=== PATIENT | male | born 1950 | race Caucasian/White ===

== ENCOUNTER → 2017-05-09 | Outpatient (CLI) | payer BC ==
[~2017-05-09] MED LIST: ADVIN25050 INH; ALBU1AER9 INH; ASCO10003 PO; ASPEC81 PO; CHOL400C7 PO; MOME50SP5; MULT-267 PO; OMEG10007 PO; SYN125 PO
--- NOTE | 2017-05-09 09:23 | DIAGNOSTIC IMAGING REPORT ---
CHEST 2 VIEWS ROUTINE CLINICAL HISTORY: J45.909 [id number] Sleep [id number] Black lung [id number] COMPARISON STUDY: 03/26/2013 FINDINGS: The cardiac and mediastinal contours remain stable. There is persistent elevation/eventration of the right hemidiaphragm. There is stable blunting of the right lateral costophrenic angle. There is stable areas of linear scarring/atelectasis the right lung base. Linear opacities the left lung base are also felt to represent subsegmental atelectatic change. The upper lung zones are clear. There is no failure.[ IMPRESSION: Chronic changes similar to the preceding study. No acute findings. Electronically signed by: Wu Lehman M.D. 05/09/2017 9:21 AM Dictated Date/Time: 05/09/2017 9:20 AM
== END | disposition home or self-care (01) ==
LOC: C.RAD1850 09:10
PROVIDERS: ATTEND Physician Assistant Medical
DX: J45.909 Unspecified asthma, uncomplicated (principal); J60 Coalworker's pneumoconiosis; G47.30 Sleep apnea, unspecified

== ENCOUNTER 2017-05-18 15:46 | Emergency (ER) | payer BC ==
[~2017-05-18] VITALS: Ht 188 cm; Wt 126.0 kg
[2017-05-18 16:19] VITALS: Ht 188 cm; Wt 126.0 kg
[2017-05-18] MEDS ORDERED: ALBUT/IPRATROP 3MG/0.5MG NEB 3 ML VIAL INH STA (16:51)
[2017-05-18] MEDS ORDERED: METHYLPREDNISOLONE 125 MG VIAL IV STA (16:51)
[2017-05-18] MEDS ORDERED: LEVO125T5 PO (17:19)
[2017-05-18] MEDS ORDERED: ALBU18002 INH (17:19)
[2017-05-18] MEDS ORDERED: FLUT115A INH (17:19)
[2017-05-18] MEDS ORDERED: MOME6000 NAE (17:19)
[2017-05-18] MEDS ORDERED: MULT1TAB30 PO (17:19)
[2017-05-18 17:53] LABS: BASO % 0.6 %; BASO ABS # 0.03 K/uL (0-0.2); EOS % 2.9 %; EOS ABS # 0.14 K/uL (0-0.5); HEMOGLOBIN 16.1 g/dL (14.0-18.0); IG# 0.03 K/uL (0.00-0.02); LYMPH % 14.3 %; LYMPH ABS # 0.68 K/uL (1.2-3.4); MEAN CORPUSCULAR HEMOGLOBIN 30.1 pg (25-34); MEAN CORPUSCULAR HGB CONC 34.3 g/dl (32-36); MEAN PLATELET VOLUME 11.3 fL (7.4-10.4); MONO % 11.8 %; MONO ABS # 0.56 K/uL (0.11-0.59); NEUT % 69.8 %; NEUT ABS # 3.32 K/uL (1.4-6.5); PLATELET COUNT 167 K/uL (130-400); RED CELL DISTRIBUTION WIDTH CV 13.6 % (11.5-14.5); RED CELL DISTRIBUTION WIDTH SD 43.5 fL (36.4-46.3); WHITE BLOOD COUNT 4.76 K/uL (4.8-10.8)
[2017-05-18 18:04] LABS: INFLUENZA B ANTIGEN Neg for Influ B (NEG)
[2017-05-18 18:13] LABS: ALBUMIN 3.6 gm/dl (3.4-5.0); ALT/SGPT 100 U/L (12-78); AST/SGOT 71 U/L (15-37); BLOOD UREA NITROGEN 19 mg/dl (7-18); CALCIUM 9.1 mg/dl (8.5-10.1); CARBON DIOXIDE 26 mmol/L (21-32); CREATININE 1.01 mg/dl (0.60-1.40); GLUCOSE 103 mg/dl (70-99); POTASSIUM 3.9 mmol/L (3.5-5.1); SODIUM 137 mmol/L (136-145)
[2017-05-18 18:16] LABS: ALKALINE PHOSPHATASE 86 U/L (45-117)
--- NOTE | 2017-05-18 18:18 | EMERGENCY ROOM VISIT NOTE ---
History Report prepared by Brigette: Vandana Rojas Under the Supervision of: Dr. Marcia Loyd M.D. First contact with patient: 16:39 Chief Complaint: RESPIRATORY PROBLEMS Stated Complaint: COUGH, CONGESTION, TROUBLE CATCHING BREATH, LUNG History of Present Illness The patient is a 66 year old male who presents to the Emergency Room with complaints of an episode of respiratory problems starting yesterday. The patient state that he has asthma, allergies, and black lung from being a minor. He states that he had a collapsed lung about 8 years ago. He reports that when he starts to cough, his lung becomes sore. He states that he usually needs cough medicine to help. The patient reports that he started coughing yesterday and today became dizzy when he would cough. He complains of chest congestion and notes that Mucinex offered some relief. The patient complains of body aches and chills this morning. The patient denies a fever, smoking, and being diabetic. Source of History: patient Onset: yesterday Position: other (global) Quality: other (respiratory) Timing: other (episode) Modifying Factors (Relieving): other (Mucinex) Associated Symptoms: + chills, + cough, No fevers Note: The patient complains of chest congestion, dizziness, and body aches. Review of Systems See HPI for pertinent positives & negatives. A total of 10 systems reviewed and were otherwise negative. Past Medical & Surgical Medical Problems: (1) Asthma (2) Black lung Family History No pertinent family history Social History Smoking Status: Never Smoker Drug Use: none Marital Status: single Housing Status: lives alone Occupation Status: employed Current/Historical Medications Scheduled Ascorbic Acid (Vitamin C), 2,000 MG PO DAILY Cholecalciferol (Vitamin D 400 Iu), 400 INTER.UNIT PO DAILY Fish Oil ([place]-3), 1,200 MG PO DAILY Fluticasone-Salmeterol 115/21 Mcg (Advair Hfa 115/21 Mcg), 1 PUFF INH BID Levothyroxine Sodium (Levothyroxine Sodium), 125 MCG PO DAILY Multiple Vitamins W/ Minerals (Mateusz Multivitamin For Men), 1 TAB PO DAILY Prednisone Tab (Prednisone), 10 MG PO DIRECTED Scheduled PRN Albuterol Sulfate (Proair Respiclick), 2 PUFFS INH DIRECTED PRN for Shortness of Breath Benzonatate (Tessalon Perles), 200 MG PO Q8 PRN for Cough Hydrocodone W/ Homatropine (Hycodan 5/1.5MG 5 Ml), 5-10 ML PO HS PRN for Cough Hydrocodone W/ Homatropine (Hycodan 5/1.5MG 5 Ml), 5 ML PO Q6H PRN for Cough Hydrocodone W/ Homatropine (Hycodan 5/1.5MG 5 Ml), 5 ML PO Q6H PRN for Cough Mometasone Furoate (Nasal) (Mometasone Furoate), 1 SPRAY ANDREA DAILY PRN for Allergic Reaction Allergies Coded Allergies: Banana (Verified Allergy, Mild, NAUSEA, 05/18/17) Kiwi (Verified Allergy, Mild, NAUSEA, 05/18/17) Raspberry (Verified Allergy, Mild, NAUSEA, 05/18/17) Apple (Verified Allergy, Unknown, ASTHMA, 05/18/17) Dog Dander (Verified Allergy, Unknown, ASTHMA, 05/18/17) Molds and Smuts (Verified Allergy, Unknown, ASTHMA, 05/18/17) NO KNOWN DRUG ALLERGIES (Verified Allergy, Unknown, , 05/18/17) Physical Exam Vital Signs Date Time Temp Pulse Resp B/P (MAP) Pulse Ox O2 Delivery O2 Flow Rate FiO2 05/18/17 19:03 37.3 87 22 135/62 91 05/18/17 17:42 80 05/18/17 17:32 92 Room Air 05/18/17 16:19 37.3 82 22 164/86 92 Room Air Physical Exam Vital signs reviewed. General: Well-appearing, in no significant distress. HEENT: No scleral icterus, PERRLA, neck supple. Atraumatic. Cardiovascular: Regular rate and rhythm, no extra sounds. Pulmonary: Clear to auscultation bilaterally, slight increased work of breathing. Abdomen: Soft, nontender, nondistended, positive bowel sounds. Musculoskeletal: Atraumatic, no peripheral edema. Neurologic: Patient awake alert and oriented x 3 Skin: Warm, dry, no rash Medical Decision & Procedures ER Provider Diagnostic Interpretation: Radiology results as stated below per my review and radiologist interpretation: CHEST ONE VIEW PORTABLE HISTORY: Short of breath. Cough. COMPARISON: Chest 05/09/2017. FINDINGS: No pneumothorax. No pleural effusions. The heart is normal in size. Stable elevation of the right hemidiaphragm. Bibasilar linear densities consistent with subsegmental atelectasis. No new focal lung consolidations. No evidence for pulmonary edema. IMPRESSION: No significant change compared to the prior study. No acute process. Electronically signed by: Mauro Burgos M.D. 05/18/2017 6:52 PM Dictated Date/Time: 05/18/2017 6:52 PM Laboratory Results 05/18/17 17:25 Red Blood Count 5.34, Mean Corpuscular Volume 88.0, Mean Corpuscular Hemoglobin 30.1, Mean Corpuscular Hemoglobin Concent 34.3, Mean Platelet Volume 11.3, Neutrophils (%) (Auto) 69.8, Lymphocytes (%) (Auto) 14.3, Monocytes (%) (Auto) 11.8, Eosinophils (%) (Auto) 2.9, Basophils (%) (Auto) 0.6, Neutrophils # (Auto ) 3.32, Lymphocytes # (Auto) 0.68, Monocytes # (Auto) 0.56, Eosinophils # (Auto ) 0.14, Basophils # (Auto) 0.03 05/18/17 17:25 Test 05/18/17 17:23 05/18/17 17:25 Influenza Type A Antigen Neg for Influ A (NEG) Influenza Type B Antigen Neg for Influ B (NEG) White Blood Count 4.76 K/uL (4.8-10.8) Red Blood Count 5.34 M/uL (4.7-6.1) Hemoglobin 16.1 g/dL (14.0-18.0) Hematocrit 47.0 % (42-52) Mean Corpuscular Volume 88.0 fL (80-100) Mean Corpuscular Hemoglobin 30.1 pg (25-34) Mean Corpuscular Hemoglobin Concent 34.3 g/dl (32-36) Platelet Count 167 K/uL (130-400) Mean Platelet Volume 11.3 fL (7.4-10.4) Neutrophils (%) (Auto) 69.8 % Lymphocytes (%) (Auto) 14.3 % Monocytes (%) (Auto) 11.8 % Eosinophils (%) (Auto) 2.9 % Basophils (%) (Auto) 0.6 % Neutrophils # (Auto) 3.32 K/uL (1.4-6.5) Lymphocytes # (Auto) 0.68 K/uL (1.2-3.4) Monocytes # (Auto) 0.56 K/uL (0.11-0.59) Eosinophils # (Auto) 0.14 K/uL (0-0.5) Basophils # (Auto) 0.03 K/uL (0-0.2) RDW Standard Deviation 43.5 fL (36.4-46.3) RDW Coefficient of Variation 13.6 % (11.5-14.5) Immature Granulocyte % (Auto) 0.6 % Immature Granulocyte # (Auto) 0.03 K/uL (0.00-0.02) Anion Gap 6.0 mmol/L (3-11) Est Creatinine Clear Calc Drug Dose 104.2 ml/min Estimated GFR () 90.7 Estimated GFR (Non- 78.2 BUN/Creatinine Ratio 18.4 (10-20) Calcium Level 9.1 mg/dl (8.5-10.1) Total Bilirubin 0.6 mg/dl (0.2-1) Direct Bilirubin < 0.1 mg/dl (0-0.2) Aspartate Amino Transf (AST/SGOT) 71 U/L (15-37) Alanine Aminotransferase (ALT/SGPT) 100 U/L (12-78) Alkaline Phosphatase 86 U/L (45-117) Total Protein 8.0 gm/dl (6.4-8.2) Albumin 3.6 gm/dl (3.4-5.0) Laboratory results per my review. Medications Administered Medications (Trade) Dose Ordered Sig/Marilin Route Start Time Stop Time Status Last Admin Dose Admin Albuterol/ Ipratropium (Duoneb) 3 ml NOW STAT INH 05/18/17 16:51 05/18/17 16:55 DC 05/18/17 16:51 3 ML Methylprednisolone Sodium Succinate (Solu-Medrol IV) 125 mg NOW STAT IV 05/18/17 16:51 05/18/17 16:56 DC 05/18/17 17:24 125 MG Hydrocodone Bit/ Homatropine Methylb (Hycodan Elix Homepack 5/1.5MG/ 5ML) 1 homepack UD ONCE PO 05/18/17 19:00 05/18/17 19:01 DC 05/18/17 19:00 1 HOMEPACK ED Course 1649: Past medical records reviewed. The patient was evaluated in room C6. A complete history and physical examination was performed. 1650: Ordered Solu-Medrol IV 125 mg IV, Duoneb 3 ml INH. 1836: Upon reevaluation, the patient appeared to have improvement of his symptoms. I discussed findings with him. He verbalized agreement of the treatment plan. The patient was discharged home. 1899: Ordered Hydrocodone Bit/ Homatropine Methylb 1 homepack PO. Medical Decision Differential diagnosis: Etiologies such as infections, reactive airway disease, pneumonia, pneumothorax , COPD, CHF, cardiac ischemia, pulmonary embolism, musculoskeletal, gastrointestinal, as well as others were entertained. This patient was evaluated and appeared to be in no significant distress. The patient does have a slight increased work of breathing. Patient was given a DuoNeb treatment and IV Solu-Medrol. Chest x-ray was obtained and is largely clear. Patient's laboratory work reveals mildly elevated liver enzymes. The etiology of this is unclear but he has no abdominal pain or vomiting today. The patient was reevaluated and feeling much improved. He was discharged on a prednisone taper and will use an albuterol inhaler every 4 hours as needed. The patient was encouraged to follow up with his PCP for reevaluation and pulmonology as soon as possible. He will return to the ER for worsening of symptoms or any medical concerns. Medication Reconcilliation Current Medication List: was personally reviewed by me Blood Pressure Screening Patient's blood pressure: Elevated blood pressure Blood pressure disposition: Elevated BP felt to be situational Impression Primary Impression: Acute exacerbation of chronic obstructive pulmonary disease (COPD) Scribe Attestation The scribe's documentation has been prepared under my direction and personally reviewed by me in its entirety. I confirm that the note above accurately reflects all work, treatment, procedures, and medical decision making performed by me. Departure Information Dispostion Home / Self-Care Prescriptions Hydrocodone W/ Homatropine (HYCODAN 5/1.5MG 5 ML) 1 Syp Syp 5 ML PO Q6H Y for Cough for 9 Days, #120 ML Prov: Quan Gabriel D.O. 05/19/17 Hydrocodone W/ Homatropine (HYCODAN 5/1.5MG 5 ML) 1 Syp Syp 5 ML PO Q6H Y for Cough for 9 Days, #120 ML Prov: Quan Gabriel D.O. 05/19/17 Benzonatate (Tessalon Perles) 200 Mg Cap 200 MG PO Q8 Y for Cough, #14 CAP Prov: Marcia Loyd M.D. 05/18/17 Hydrocodone W/ Homatropine (HYCODAN 5/1.5MG 5 ML) 1 Syp Syp 5-10 ML PO HS Y for Cough for 24 Days, #120 ML Prov: Marcia Loyd M.D. 05/18/17 Prednisone Tab (PREDNISONE) 10 Mg Tab 10 MG PO DIRECTED, #31 TAB Prov: Marcia Loyd M.D. 05/18/17 Referrals No Doctor, Assigned (PCP) Forms HOME CARE DOCUMENTATION FORM, IMPORTANT VISIT INFORMATION, WORK / SCHOOL INSTRUCTIONS Patient Instructions My [facility] Additional Instructions Diagnosis: Exacerbation of COPD Prednisone 40 mg daily for 4 days, 30 mg daily for 3 days, 20 mA daily for 2 days, 10 mg daily for 2 days Albuterol 2 puffs every 4 hours as needed for wheezing or cough. Tessalon Perles 100-200 mg every 8 hours as needed for cough. Hycodan syrup 5-10 mL before bed for cough. Do not drive on this medication. Tylenol 650 mg every 6 hours as needed for pain or fever. Follow-up with your physician this week for reevaluation. Return to the ER for worsening of symptoms or any medical concerns.
--- NOTE | 2017-05-18 18:54 | DIAGNOSTIC IMAGING REPORT ---
CHEST ONE VIEW PORTABLE HISTORY: Short of breath. Cough. COMPARISON: Chest 05/09/2017. FINDINGS: No pneumothorax. No pleural effusions. The heart is normal in size. Stable elevation of the right hemidiaphragm. Bibasilar linear densities consistent with subsegmental atelectasis. No new focal lung consolidations. No evidence for pulmonary edema. IMPRESSION: No significant change compared to the prior study. No acute process. Electronically signed by: Mauro Burgos M.D. 05/18/2017 6:52 PM Dictated Date/Time: 05/18/2017 6:52 PM
[2017-05-18] MEDS ORDERED: HYDR5SYP11 PO (18:57)
[2017-05-18] MEDS ORDERED: PRED10TA PO (18:57)
[2017-05-18] MEDS ORDERED: BENZ1CAP90 PO (18:57)
[2017-05-18] MEDS ORDERED: HYCODAN 60ML BOTTLE HOMEPACK PO ONE (19:00)
[2017-05-18 19:03] VITALS: BP 135/62; PULSE 87; TEMP 37.3; O2SAT 91
[2017-05-19] MEDS ORDERED: HYDR5SYP11 PO ×2 (11:38→12:11)
--- NOTE | 2017-05-19 11:59 | Pharmacy Progress Note ---
ED Pharmacist Progress Note Date of Service: May 19, 2017. Patient called this AM because he could not get Rx for Hycodan filled at [facility] in [place]. I contacted the [facility] in [place] and pharmacist told me the Rx was cancelled when received this AM and that they had called the ED to notify the provider. Patient was requesting Rx be sent to [facility] instead. Reviewed case with Dr Gabriel. He agreed to send the Rx to [facility] instead vs eRx. Rx sent electronically to [facility] in [place] again , which I did contact that pharmacy to have cancelled. Dr Gabriel to send new Rx to [facility] in [place].
== END 2017-05-18 19:05 | disposition home or self-care (01) ==
LOC: C.EDB 15:47 → C.EDC 19:05
DX: J44.1 Chronic obstructive pulmonary disease with (acute) exacerbation (principal); J60 Coalworker's pneumoconiosis

== ENCOUNTER 2017-05-23 14:54 | Emergency (ER) | payer BC ==
[~2017-05-23] VITALS: Ht 188 cm; Wt 123.7 kg
[~2017-05-23 14:54] MED LIST changes: -ADVIN25050 INH; +ALBU18002 INH; -ALBU1AER9 INH; -ASPEC81 PO; +BENZ1CAP90 PO; +FLUT115A INH; +HYDR5SYP11 PO; +LEVO125T5 PO; -MOME50SP5; +MOME6000 NAE; -MULT-267 PO; +MULT1TAB30 PO; +PRED10TA PO; -SYN125 PO
[2017-05-23 15:07] VITALS: TEMP 36.9; Ht 188 cm; Wt 123.7 kg
[2017-05-23 15:15] VITALS: O2SAT 94
[2017-05-23] MEDS ORDERED: ALBUT/IPRATROP 3MG/0.5MG NEB 3 ML VIAL INH STA (15:22)
[2017-05-23] MEDS ORDERED: METHYLPREDNISOLONE 125 MG VIAL IV STA (15:22)
[2017-05-23 15:39] LABS: BASO % 0.7 %; BASO ABS # 0.04 K/uL (0-0.2); HEMATOCRIT 49.4 % (42-52); HEMOGLOBIN 17.3 g/dL (14.0-18.0); IG# 0.06 K/uL (0.00-0.02); LYMPH % 17.7 %; MEAN CELL VOLUME 86.7 fL (80-100); MEAN CORPUSCULAR HEMOGLOBIN 30.4 pg (25-34); MEAN PLATELET VOLUME 10.7 fL (7.4-10.4); MONO % 6.9 %; MONO ABS # 0.39 K/uL (0.11-0.59); NEUT % 73.6 %; NEUT ABS # 4.16 K/uL (1.4-6.5); PLATELET COUNT 189 K/uL (130-400); RED CELL DISTRIBUTION WIDTH CV 13.2 % (11.5-14.5); RED CELL DISTRIBUTION WIDTH SD 41.9 fL (36.4-46.3); WHITE BLOOD COUNT 5.65 K/uL (4.8-10.8)
--- NOTE | 2017-05-23 15:43 | DIAGNOSTIC IMAGING REPORT ---
CHEST ONE VIEW PORTABLE CLINICAL HISTORY: Chest pain. COMPARISON STUDY: Chest radiograph May 18, 2017. FINDINGS: Marked elevation of the right hemidiaphragm is again noted. Right basilar opacity suggests atelectasis. There is no consolidation to suggest pneumonia. There is no evidence for pulmonary edema. IMPRESSION: 1. No acute cardiopulmonary findings. 2. Marked elevation of the right hemidiaphragm, slightly increased since prior exam. Electronically signed by: Rey Gerber M.D. 05/23/2017 3:42 PM Dictated Date/Time: 05/23/2017 3:40 PM
[2017-05-23 16:00] LABS: ALBUMIN 3.7 gm/dl (3.4-5.0); ALT/SGPT 104 U/L (12-78); AST/SGOT 48 U/L (15-37); BLOOD UREA NITROGEN 21 mg/dl (7-18); CARBON DIOXIDE 28 mmol/L (21-32); CREATININE 1.14 mg/dl (0.60-1.40); GLUCOSE 125 mg/dl (70-99); LIPASE 88 U/L (73-393); POTASSIUM 4.4 mmol/L (3.5-5.1); SODIUM 135 mmol/L (136-145)
[2017-05-23 16:01] LABS: ALKALINE PHOSPHATASE 96 U/L (45-117); TOTAL PROTEIN 8.3 gm/dl (6.4-8.2)
[2017-05-23] MEDS ORDERED: AZITTAB PO (16:27)
[2017-05-23] MEDS ORDERED: AZITHROMYCIN 250 MG TAB PO ONE (16:30)
[2017-05-23 16:38] VITALS: BP 143/82; PULSE 82; O2SAT 94
--- NOTE | 2017-05-23 16:42 | EMERGENCY ROOM VISIT NOTE ---
History Report prepared by Brigette: Michael Starr Under the Supervision of: Dr. Tj Arceo M.D. First contact with patient: 15:13 Chief Complaint: SHORTNESS OF BREATH Stated Complaint: BREATHING DIFFICULTY Nursing Triage Summary: Patient presents with continued shortness of breath and cough States he was evaluated in the ED on 05/18/16 for similar symptoms History of Present Illness The patient is a 66 year old male who presents to the Emergency Room with complaints of persistent shortness of breath beginning six day ago. He also complains of a cough. His cough produces a green sputum. The patient notes that he has had some body aches recently as well. He was seen in the ED earlier this week for similar symptoms and was diagnosed with COPD exacerbation. The patient denies leg pain or swelling, fevers, or chest pain. He took his pulse ox at home today and found it to be as low as 73%. He has no history of blood clots. The patient is currently on a Prednisone taper and antibiotics. Source of History: patient Onset: Six days ago Symptom Intensity: Pulse ox of 73% Quality: other (shortness of breath) Timing: other (persistent) Associated Symptoms: + cough (produces green sputum), No fevers, No chest pain Note: Additional symptoms: body aches. He denies leg pain or swelling. Review of Systems See HPI for pertinent positives & negatives. A total of 10 systems reviewed and were otherwise negative. Past Medical & Surgical Medical Problems: (1) Asthma (2) Black lung Old medical records were reviewed. Nurse's notes were reviewed and I agree with. Family History No pertinent family history Social History Smoking Status: Never Smoker Drug Use: none Marital Status: single Housing Status: lives alone Occupation Status: employed Current/Historical Medications Scheduled Ascorbic Acid (Vitamin C), 2,000 MG PO DAILY Azithromycin (Zithromax Z-Maxim), 0 PO UD Cholecalciferol (Vitamin D 400 Iu), 400 INTER.UNIT PO DAILY Fish Oil ([place]-3), 1,200 MG PO DAILY Fluticasone-Salmeterol 115/21 Mcg (Advair Hfa 115/21 Mcg), 1 PUFF INH BID Levothyroxine Sodium (Levothyroxine Sodium), 125 MCG PO DAILY Multiple Vitamins W/ Minerals (Mateusz Multivitamin For Men), 1 TAB PO DAILY Prednisone Tab (Prednisone), 10 MG PO DIRECTED Scheduled PRN Albuterol Sulfate (Proair Respiclick), 2 PUFFS INH DIRECTED PRN for Shortness of Breath Benzonatate (Tessalon Perles), 200 MG PO Q8 PRN for Cough Hydrocodone W/ Homatropine (Hycodan 5/1.5MG 5 Ml), 5-10 ML PO HS PRN for Cough Hydrocodone W/ Homatropine (Hycodan 5/1.5MG 5 Ml), 5 ML PO Q6H PRN for Cough Hydrocodone W/ Homatropine (Hycodan 5/1.5MG 5 Ml), 5 ML PO Q6H PRN for Cough Mometasone Furoate (Nasal) (Mometasone Furoate), 1 SPRAY ANDREA DAILY PRN for Allergic Reaction Allergies Coded Allergies: Banana (Verified Allergy, Mild, NAUSEA, 05/23/17) Kiwi (Verified Allergy, Mild, NAUSEA, 05/23/17) Raspberry (Verified Allergy, Mild, NAUSEA, 05/23/17) Apple (Verified Allergy, Unknown, ASTHMA, 05/23/17) Dog Dander (Verified Allergy, Unknown, ASTHMA, 05/23/17) Molds and Smuts (Verified Allergy, Unknown, ASTHMA, 05/23/17) NO KNOWN DRUG ALLERGIES (Verified Allergy, Unknown, , 05/23/17) Physical Exam Vital Signs Date Time Temp Pulse Resp B/P (MAP) Pulse Ox O2 Delivery O2 Flow Rate FiO2 05/23/17 16:38 82 20 143/82 94 Room Air 05/23/17 15:21 81 05/23/17 15:15 94 Room Air 05/23/17 15:07 36.9 84 20 153/83 93 Room Air Physical Exam General: Non-ill appearing middle aged male in no acute distress. HEENT: Normal cephalic atraumatic. Pupils are equal round and reactive to light. Extraocular movements are intact. Oropharynx is pink with moist mucous membranes. No swelling of the mouth lips or tongue. Neck: Supple with a midline trachea. No meningeal signs or stiffness, no JVD or bruits. No Stridor. Chest: Clear to auscultation bilaterally. No wheezes or rhonchi. No increased work of breathing. Heart: regular rate and rhythm. Abdomen: Soft nontender, nondistended without rebound guarding or rigidity. Extremities: No cyanosis clubbing or edema. No calf tenderness or assymetry Spine/Back. Non tender to palpation. No CVA tenderness Skin: Good turgor without rashes. Neurologic exam: Cranial nerves two through 12 are intact. Motor and sensation are intact and symmetrical throughout. Medical Decision & Procedures ER Provider Diagnostic Interpretation: Radiology results as stated below per my review and radiologist interpretation: CHEST ONE VIEW PORTABLE FINDINGS: Marked elevation of the right hemidiaphragm is again noted. Right basilar opacity suggests atelectasis. There is no consolidation to suggest pneumonia. There is no evidence for pulmonary edema. IMPRESSION: 1. No acute cardiopulmonary findings. 2. Marked elevation of the right hemidiaphragm, slightly increased since prior exam. Electronically signed by: Rey Gerber M.D. 05/23/2017 3:42 PM Laboratory Results 05/23/17 15:29 Red Blood Count 5.70, Mean Corpuscular Volume 86.7, Mean Corpuscular Hemoglobin 30.4, Mean Corpuscular Hemoglobin Concent 35.0, Mean Platelet Volume 10.7, Neutrophils (%) (Auto) 73.6, Lymphocytes (%) (Auto) 17.7, Monocytes (%) (Auto) 6.9, Eosinophils (%) (Auto) 0.0, Basophils (%) (Auto) 0.7, Neutrophils # (Auto) 4.16, Lymphocytes # (Auto) 1.00, Monocytes # (Auto) 0.39, Eosinophils # (Auto) 0.00, Basophils # (Auto) 0.04 05/23/17 15:29 Test 05/23/17 15:29 05/23/17 15:40 White Blood Count 5.65 K/uL (4.8-10.8) Red Blood Count 5.70 M/uL (4.7-6.1) Hemoglobin 17.3 g/dL (14.0-18.0) Hematocrit 49.4 % (42-52) Mean Corpuscular Volume 86.7 fL (80-100) Mean Corpuscular Hemoglobin 30.4 pg (25-34) Mean Corpuscular Hemoglobin Concent 35.0 g/dl (32-36) Platelet Count 189 K/uL (130-400) Mean Platelet Volume 10.7 fL (7.4-10.4) Neutrophils (%) (Auto) 73.6 % Lymphocytes (%) (Auto) 17.7 % Monocytes (%) (Auto) 6.9 % Eosinophils (%) (Auto) 0.0 % Basophils (%) (Auto) 0.7 % Neutrophils # (Auto) 4.16 K/uL (1.4-6.5) Lymphocytes # (Auto) 1.00 K/uL (1.2-3.4) Monocytes # (Auto) 0.39 K/uL (0.11-0.59) Eosinophils # (Auto) 0.00 K/uL (0-0.5) Basophils # (Auto) 0.04 K/uL (0-0.2) RDW Standard Deviation 41.9 fL (36.4-46.3) RDW Coefficient of Variation 13.2 % (11.5-14.5) Immature Granulocyte % (Auto) 1.1 % Immature Granulocyte # (Auto) 0.06 K/uL (0.00-0.02) Prothrombin Time 10.6 SECONDS (9.0-12.0) Prothromb Time International Ratio 1.0 (0.9-1.1) Activated Partial Thromboplast Time 27.0 SECONDS (21.0-31.0) Partial Thromboplastin Ratio 1.0 D-Dimer < 190 ug/L FEU (0-500) Anion Gap 5.0 mmol/L (3-11) Est Creatinine Clear Calc Drug Dose 91.5 ml/min Estimated GFR () 78.3 Estimated GFR (Non- 67.6 BUN/Creatinine Ratio 18.6 (10-20) Calcium Level 9.0 mg/dl (8.5-10.1) Total Bilirubin 0.4 mg/dl (0.2-1) Direct Bilirubin < 0.1 mg/dl (0-0.2) Aspartate Amino Transf (AST/SGOT) 48 U/L (15-37) Alanine Aminotransferase (ALT/SGPT) 104 U/L (12-78) Alkaline Phosphatase 96 U/L (45-117) Total Protein 8.3 gm/dl (6.4-8.2) Albumin 3.7 gm/dl (3.4-5.0) Lipase 88 U/L (73-393) Bedside Troponin I < 0.030 ng/ml (0-0.045) Laboratory studies as stated above per my review. Medications Administered Medications (Trade) Dose Ordered Sig/Marilin Route Start Time Stop Time Status Last Admin Dose Admin Methylprednisolone Sodium Succinate (Solu-Medrol IV) 125 mg NOW STAT IV 05/23/17 15:22 05/23/17 15:24 DC 05/23/17 15:34 125 MG Albuterol/ Ipratropium (Duoneb) 3 ml NOW STAT INH 05/23/17 15:22 05/23/17 15:25 DC 05/23/17 15:34 3 ML Azithromycin (Zithromax Tab) 500 mg NOW ONCE PO 05/23/17 16:30 05/23/17 16:31 DC 05/23/17 16:40 500 MG ECG Indication: SOB/dyspnea Rate (beats per minute): 76 Rhythm: normal sinus Findings: no acute ischemic change, no ectopy Comparison ECG Date: August 06, 2015 Change: no significant change ED Course 1514: Past medical records reviewed. The patient was evaluated in room B10, and a complete history and physical examination were performed. 1522: Ordered DuoNeb 3 mL INH, Solu-Medrol 125 mg IV. 1630: Ordered Zithromax Tab 500 mg PO. 1635: Upon reevaluation, the patient is resting comfortably. I discussed the results and treatment plan with him. He verbalized agreement of the treatment plan. The patient was discharged home. Medical Decision Differentials include, but are not limited to; COPD exacerbation, bronchitis, cardiac disease, PE, CHF, and electrolyte or metabolic abnormality. This patient comes in as described above. he does have chronic pulmonary disease and comes in with continuation symptoms and cough. He looks great on exam. He is non-hypoxemic. he speaking full sentences and is in no distress. He appears with no increased work of breathing at present. His lungs do not have any significant wheezing. He was given albuterol neb and IV access established. EKG and chest x-ray was obtained. He was also given Solu-Medrol 125 mg IV. I reviewed his recent ER visit his influenza several days ago was negative. He has no white count or fever to suggest infection. EKG does not suggest acute coronary syndrome or arrhythmia. Chest x-ray shows no acute findings he has a chronic elevation of his right diaphragm. I think most likely this is bronchitis/COPD exacerbation. He said that he typically gets better when he takes antibiotics like azithromycin. I gave Azithromycin PO here as well as a prescription and he should continue using steroids and inhalers and return if any new problems or concerns. He is feeling significant better. He was encouraged follow up with his doctor Friday for recheck or return here over the weekend if symptoms worsen. Medication Reconcilliation Current Medication List: was personally reviewed by me Blood Pressure Screening Patient's blood pressure: Elevated blood pressure Blood pressure disposition: Referred to PCP Impression Primary Impression: Acute bronchitis Additional Impression: COPD exacerbation Scribe Attestation The scribe's documentation has been prepared under my direction and personally reviewed by me in its entirety. I confirm that the note above accurately reflects all work, treatment, procedures, and medical decision making performed by me. Departure Information Dispostion Home / Self-Care Prescriptions Azithromycin (ZITHROMAX Z-MAXIM) 250 Mg Tab 0 PO UD, #1 PKT Prov: Tj Arceo M.D. 05/23/17 Referrals Samreen Rodriguez (PCP) Forms HOME CARE DOCUMENTATION FORM, IMPORTANT VISIT INFORMATION Patient Instructions My [facility] Additional Instructions Rest Drink plenty of fluids. Use Azithromycin Zpak as directed Continue your cough medications, steroids and inhalers Return if: Worsening of symptoms, increasing shortness of breath, fever or chills, any new problems or concerns Problem Qualifiers
== END 2017-05-23 16:45 | disposition home or self-care (01) ==
LOC: C.EDB 14:56
DX: J44.0 Chronic obstructive pulmonary disease with (acute) lower respiratory infection (principal); J20.9 Acute bronchitis, unspecified; J44.1 Chronic obstructive pulmonary disease with (acute) exacerbation; Z79.51 Long term (current) use of inhaled steroids

== ENCOUNTER → 2017-07-16 | Outpatient (CLI) | payer BC ==
[~2017-07-16] MED LIST changes: -HYDR5SYP11 PO
[2017-07-16 10:34] LABS: HEMOGLOBIN A1C 5.6 % (4.5-5.6)
== END | disposition home or self-care (01) ==
LOC: C.LAB1850 09:12
PROVIDERS: ATTEND Internal Medicine Endocrinology, Diabetes & Metabolism
DX: E03.9 Hypothyroidism, unspecified (principal)

== ENCOUNTER → 2017-08-21 | Outpatient (CLI) | payer BC | END | disposition home or self-care (01) | LOC: C.LAB1850 15:32 | PROVIDERS: ATTEND Internal Medicine Endocrinology, Diabetes & Metabolism | DX: E03.9 Hypothyroidism, unspecified (principal) ==